=== PATIENT | male | born 1955 | race Caucasian/White ===

== ENCOUNTER → 2018-07-04 | Outpatient (CLI) | payer OTHER | LOC: FIMAGING 16:19 | PROVIDERS: ATTEND Internal Medicine | DX: R05 Cough (principal); R91.1 Solitary pulmonary nodule ==

== ENCOUNTER → 2018-07-12 | Outpatient (CLI) | payer OTHER | LOC: FIMAGING 08:26 | PROVIDERS: ATTEND Internal Medicine | DX: R91.1 Solitary pulmonary nodule (principal); I25.83 Coronary atherosclerosis due to lipid rich plaque ==